=== PATIENT | female | born 1980 | race African-American/Black ===

== ENCOUNTER → 2020-01-30 07:59 | Outpatient (CLI) | payer OTHER, SELFPAY ==
--- NOTE | ~2020-01-30 | MM_ITS ---
EXAMINATION: MM diagnostic vince RT w reagan HISTORY: Six-month follow-up of likely benign right breast mammographic asymmetry TECHNIQUE: ML, MLO and cc 3-D tomosynthesis images of the right breast were performed and synthetic 2 -D images were generated. CAD analysis was submitted and interpreted. COMPARISON: 03/07/2019 diagnostic right digital mammogram and complete right breast ultrasound 02/18/2019 bilateral digital screening mammogram BREAST PARENCHYMAL COMPOSITION: There are scattered areas of fibroglandular density. FINDINGS: No suspicious mass or architectural distortion, malignant calcification, skin thickening or retraction or significant new or developing density is detected. IMPRESSION: 1. No mammographic evidence of malignancy 2. Routine mammographic screening is recommended BI-RADS Category 1: Negative Reviewed, dictated and finalized at location A.
== END ==
PROVIDERS: PCP Internal Medicine; Visit Provider Obstetrics & Gynecology
DX: R92.8 Other abnormal and inconclusive findings on diagnostic imaging of breast (principal)
CPT/HCPCS: 77061; 77065; G0279

== ENCOUNTER 2024-08-11 14:59 | Outpatient (CLI) | payer OTHER, SELFPAY ==
--- NOTE | ~2024-08-11 | MM_ITS ---
EXAMINATION: MM screening vince BI w reagan HISTORY: Screening TECHNIQUE: Craniocaudal and mediolateral oblique 3-D tomosynthesis images were obtained and synthetic 2-D images were generated. CAD analysis was submitted and interpreted. COMPARISON: Comparison to multiple prior studies sequentially, with oldest reviewed study dated 02/18/2019. BREAST PARENCHYMAL COMPOSITION: Not dense: There are scattered areas of fibroglandular density. FINDINGS: There is a focal asymmetry in the lower inner quadrant of the right breast, middle third. T he left breast is stable without evidence of malignancy. IMPRESSION: 1. New focal asymmetry lower inner quadrant, best seen on CC view. 2. Additional mammographic views and possible breast ultrasound are recommended. BI-RADS Category 0: Incomplete: Needs additional imaging evaluation. Reviewed, dictated and finalized at location A. IMPRESSION: 1. New focal asymmetry lower inner quadrant, best seen on CC view. 2. Additional mammographic views and possible breast ultrasound are recommended . BI-RADS Category 0: Incomplete: Needs additional imaging evaluation.
--- OUTSIDE RECORDS SUMMARY | 2024-08-11 15:31 | XMS_ITS | Referral Summary ---
Author Organization [facility] Address [address] [place] [address] Care Team Providers Care Resizer Operator Name Role Phone Lulu Rodgers MD Unavailable [phone] Imtiaz Tovar MD Primary Care Provider [phone] Encounters Date Type Department Care Team Description 08/03/2024 8:15 AM CDT Procedure visit [facility] [address] [place] [address] [place] [phone] Giana Calloway MD Keloid scar (Primary Dx) 07/20/2024 Telephone [facility] [address] [place] [address] [place] [phone] Con Graham 07/19/2024 Telephone [facility] [address] [place] [address] [address] [place] [phone] Con Graham from Last 3 Months Allergies Active Allergy Reactions Criticality Noted Date Comments Cetirizine Rash High 06/27/2014 Medications naproxen (Aleve) 220 mg tabletIndicatio ns:Pain,crampin g Take 220 mg by mouth as needed Active multivitamin tablet,chewable Indications:Vit breaux Deficiency Prevention Take 1 tablet by mouth every morning Active ferrous sulfate (IRON ORAL)Indication s:anemia Take 45 mg by mouth every morning Active ferrous sulfate (IRON ORAL)Indication s:anemia Take 18 mg by mouth every morning [facility] liquid iron Active loratadine (CLARITIN) 10 mg tablet Take 10 mg by mouth as needed for allergies Active acetaminophen 500 mg capsuleIndicati ons:Pain Take 2 capsules (1,000 mg total) by mouth every 6 (six) hours 60 tablet 0 Active docusate sodium (COLACE) 100 mg capsuleIndicati ons:constipatio n,Stool Softener Take 1 capsule (100 mg total) by mouth 2 (two) times a day as needed for constipation 60 capsule 3 0 Active gabapentin (NEURONTIN) 300 mg capsuleIndicati ons:Pain Take 1 capsule (300 mg total) by mouth 2 (two) times a day 60 capsule 0 Active polyethylene glycol (MIRALAX) 17 gram packetIndicatio ns:constipation Take 1 packet (17 g total) by mouth daily 30 packet 0 Active oxyCODONE (ROXICODONE) 5 mg immediate release tabletIndicatio ns:Pain Take 1 tablet (5 mg total) by mouth every 4 (four) hours as needed for pain 20 tablet 0 Active Active Problems Problem Noted Date Diagnosed Date Iron deficiency anemia 05/17/2019 Overview (05/17/2019): 2/2 menorrhagia, developed metromenorrhagia on OCP in past, Hgb down to 4 g which prompted D&C in 2008; told fibroids present; been on PO iron only since. 06/27/14 - serum iron 29, TIBC 361, ferritin 21, iron % saturation 8. 06/30/14 - WBC 4.1, Hb 9.1 g, Hct 30, MCV 71.5, PLT 326. 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 Follows with technical sales support specialist, Dr. Douglas, with plans for hysterectomy, delayed due to COVID-19 pandemic -Hgb 5.5 on arrival, symptomatic with fatigue, SOB -After 3u PRBC, hgb up to 7.8 and patient feels back to baseline -Discharge today. Instructed on iron rich diet -Needs hysterectomy, f/u with technical sales support specialist Assessment & Plan (08/28/2019 9:01 PM CDT): Long history of menorrhagia requiring transfusions in setting of known uterine fibroids. Follows with technical sales support specialist, Dr. Douglas, with plans for hysterectomy. 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 Social History Tobacco Use Types Packs/Day Years Used Date Smoking Tobacco: Never Smokeless Tobacco: Never Alcohol Use Standard Drinks/Week Comments Never 0 (1 standard drink = 0.6 oz pur e alcohol) AUDIT-C Answer Date Recorded Frequency of Alcohol Consumption Never 05/17/2019 Average Number of Drinks Not on file 020 Frequency of Binge Drinking Not on file 07/2019 Comments No Sex and Gender Information Value Date Recorded Sex Assigned at Not on file 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 Gender Identity Not on file Sexual Orientation Straight 09/16/2019 10 :34 AM CDT Last Filed Vital Signs Vital Sign Reading Time Taken Comments Blood Pressure 116/61 08/08/2020 12:29 PM CDT Pulse 70 08/08/2020 12:29 PM CDT Temperature 36.6 C (97.9 F) 08/08/2020 12:29 PM CDT Respiratory Rate 22 11/22/2019 1:36 PM CDT Oxygen Saturation 99% 08/08/2020 12:29 PM CDT Inhaled Oxygen Concentration - - Weight 95.3 kg (210 lb) 08/08/2020 12:29 PM CDT Height 175.3 cm (5' 9 ) 08/08/2020 12:29 PM CDT Body Mass Index 31.01 08/08/2020 12:29 PM CDT Plan of Treatment Not on file Insurance [facility] CHOICE PLUS [facility] HMO/PPO Address: [facility] [address] [place], [place] [id number] Advance Directives For more information, please contact: [phone] * Full Code (Latest Code Status on File) Date Activated Date Inactivated Comments 11/04/2019 11:54 AM 11/06/2019 6:40 PM * Full Code Date Activated Date Inactivated Comments 08/28/2019 8:40 PM 08/29/2019 2:37 PM Care Teams Resizer Operator Relationship Specialty Start Date End Date Imtiaz Tovar MD [address] [facility] [address] [place] [address] PCP - General 08/10/20 Lulu Rodgers MD [address] [address] Referring Physician Obstetrics and Gynecology 05/06/19
--- OUTSIDE RECORDS SUMMARY | 2024-08-11 15:31 | XMS_ITS | Clinical Summary ---
Author Organization [facility] Address [address] [place] [address] Care Team Providers Care Utilization Specialist Name Role Phone Unavailable Primary Care Provider Unavailabl e Source Comments [facility],non-owned Affiliates and Associated Physician Practices is amultiple site organization consisting of ambulatory clinics and hospital sitesin [place], [place], [place] and [place]. This disclosure is being madepursuant to the Care Everywhere program and may not contain all information available regarding this patient. Last updated 18.[facility] Social History Tobacco Use Types Packs/Day Years Used Date Smoking Tobacco: Never Assessed Comments Unknown Sex and Gender Information Value Date Recorded Sex Assigned at Not on file Legal Sex Female 8:49 AM GERMAN TUTOR Gender Identity Not on file Sexual Orientation Not on file Plan of Treatment Health Maintenance Due Date Last Done Comments LIPID TESTING 1980 MAMMOGRAM 1980 PAP SMEAR 1980 HIV SCREENING 01/07/1995 HEPATITIS C SCREENING 01/03/1998 DTAP/TDAP/TD VACCINES (1 - Tdap) 01/07/1999 HEPATITIS B VACCINE (1 of 3 - 19+ 3-dose series) 01/07/1999 COVID-19 VACCINE ( - 2023-2 5 season) 2023 DEPRESSION SCREENING 04/13/2024 INFLUENZA VACCINE (Season Ended) 2024 ZOSTER VACCINE (1 of 2) 01/07/2030 HIB VACCINE Aged Out No longer eligi ble based on patient's age to complete this topic HPV VACCINE Aged Out No longer eligi ble based on patient's age to complete this topic MENINGOCOCCAL (Group B) VACC INE SHARED DECISION-MAKING Aged Out No longer eligibl e based on patient's age to complete this topic MENINGOCOCCAL GROUPS A/C/Y/W VACCINE Aged Out No longer eligible b ased on patient's age to complete this topic PNEUMOCOCCAL VACCINE Aged Out No long er eligible based on patient's age to complete this topic Insurance [facility]
--- OUTSIDE RECORDS SUMMARY | 2024-08-11 15:31 | XMS_ITS | Clinical Summary ---
Author Organization [facility] Address [address] [place] [address] Phone Care Team Providers Care Recreation Establishment Manager Name Role Phone Unavailable Primary Care Provider Unavailabl e Allergies Active Allergy Reactions Criticality Noted Date Comments Cetirizine Rash High 06/27/2014 Medications ascorbic acid (VITAMIN C) 500 mg tablet Take 500 mg by mouth daily. Active polysaccharide iron complex (POLYSACCHARIDE IRON) 150 mg iron capsule Take 1 Capsule (150 mg) by mouth daily. 90 Capsule 3 10/17/2015 Active ibuprofen (MOTRIN) 600 mg tablet TAKE 1 TABLET BY MOUTH EVERY 6 HOURS NEEDED FOR PAIN 60 Tablet 09/23/2016 Active Active Problems Problem Noted Date Diagnosed Date Iron deficiency anemia Overview (07/12/2014): 2/2 menorrhagia, developed metromenorrhagia on OCP in past, Hgb down to 4 g which prompted D&C in 2008; told fibroids present; been on PO iron only since. 06/27/14 - serum iron 29, TIBC 361, ferritin 21, iron % saturation 8. 06/30/14 - WBC 4.1, Hb 9.1 g, Hct 30, MCV 71.5, PLT 326. Menorrhagia Immunizations Immunization Administration Dates Next Due (ADACEL/BOOSTRIX)(10 YR UP) TDAP VACCINE, 0.5ML, IM 01/11/2014 Family History Medical History Relation Name Comments Leukemia Father Colon Cancer Maternal Uncle Lymphoma Mother gastric lymphom a Breast Cancer Neg Hx Ovarian Cancer Neg Hx Relation Name Status Comments Father Maternal Uncle Mother Social History Tobacco Use Types Packs/Day Years Used Date Smoking Tobacco: Never Smokeless Tobacco: Never Alcohol Use Standard Drinks/Week Comments No 0 (1 standard drink = 0.6 oz pur e alcohol) Comments No Sex and Gender Information Value Date Recorded Sex Assigned at Not on file 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 Gender Identity Not on file Sexual Orientation Not on file Last Filed Vital Signs Vital Sign Reading Time Taken Comments Blood Pressure 110/70 09/03/2015 9:55 AM CDT Pulse 75 08/16/2015 8:28 AM CDT Temperature 36.9 C (98.5 F) 08/16/2015 8:28 AM CDT Respiratory Rate - - Oxygen Saturation 98% 08/16/2015 8:28 AM CDT Inhaled Oxygen Concentration - - Weight 93.4 kg (206 lb) 09/03/2015 9:55 AM CDT Height 177.8 cm (5' 10 ) 09/03/2015 9:55 AM CDT Body Mass Index 29.56 09/03/2015 9:55 AM CDT Plan of Treatment Health Maintenance Due Date Last Done Comments HEPATITIS B VACCINES (1 of 3 - 19+ 3-dose series) 01/07/1999 PAP SMEAR 09/02/2018 09/03/2015, 03/13/2014 (Previously completed) BREAST CANCER SCREENING 2020 CERVICAL CANCER SCREENING 09/02/2020 HPV/Cotest (21-29) 09/02/2020 09/03/2015 HPV/Cotest (30-65) 09/02/2020 09/03/2015 INFLUENZA VACCINE (#1) 2023 DTAP/TDAP/TD VACCINES (2 - Td or Tdap) 01/12/2024 01/11/2014 HPV VACCINES Aged Out No longer eligi ble based on patient's age to complete this topic Procedures Procedure Name Priority Date/Time Associated Diagnosis Comments CERV/VAG CYTO SCREEN PAP RLFX HPV Routine 09/03/2015 10:28 AM CDT from Last 3 Months or Most Recently Relevant to Health Maintenance Results * CERV/VAG CYTOPATH, THIN PREP IMAGR RFLX HPV (CP) (09/03/2015 10:28 AM CDT) [facility] INFORMATION [facility] Comment:Information not prov ided LAST MENSTRUAL PERIOD [employer] DIAGNOSTICS [facility] Comment:[id number] PREV PAP: [facility] Comment:INFORMATION NOT PROV IDED PREV BX: [facility] DIAGNOSTICS [facility] Comment:INFORMATION NOT PROV IDED SOURCE [facility] DIAGNOSTICS [facility] Comment:Endocervix ADEQUACY: [facility] DIAGNOSTICS [facility] Comment: Satisfactory for evaluation. Endocervical/transformation zone component present. INTERPRETATION [facility] Comment:Negative for intraep ithelial lesion or malignancy. COMMENT [facility] [employer] Comment: This Pap test has been evaluated with computer assisted technology. DCS ENGINEER: KULWINDER [employer] [facility] Comment: KMY, CT(ASCP) CT screening location: [place] [address] [place] [address] Test Performed at: [email or web address] [address] AMRIT MCKEON MD 09/03/2015 10:2 8 AM CDT Debbie Crabtree DO PATHOLOGY/CYTOLOGY ORDERABLES nal Result [facility] [address] [place] [address] from Last 3 Months or Most Recently Relevant to Health Maintenance Insurance [address] [place] [address] IMAGINE 360
--- OUTSIDE RECORDS SUMMARY | 2024-08-11 15:31 | XMS_ITS | Clinical Summary ---
Author Organization 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 Follows with game master, Dr. Douglas, with plans for hysterectomy, delayed due to COVID-19 pandemic -Hgb 5.5 on arrival, symptomatic with fatigue, SOB -After 3u PRBC, hgb up to 7.8 and patient feels back to baseline -Discharge today. Instructed on iron rich diet -Needs hysterectomy, f/u with game master Assessment & Plan (08/28/2019 9:01 PM CDT): Long history of menorrhagia requiring transfusions in setting of known uterine fibroids. Follows with game master, Dr. Douglas, with plans for hysterectomy. 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 Encounters Date Type Department Care Team Description 08/03/2024 8:15 AM CDT Procedure visit [facility] [address] [place] [address] Outpatient Health [address] [place] [phone] Giana Calloway MD Keloid scar (Primary Dx) 07/20/2024 Telephone [facility] [address] [place] [address] Outpatient Health [address] [place] [phone] Con Graham 07/19/2024 Telephone [facility] [address] [place] [address] Outpatient Health [address] [place] [phone] Con Graham from Last 3 Months Surgical History Surgery Date Site/Laterality Comments DILATION AND CURETTAGE OF UTERUS 04/13/2008 - 04/12/2009 Medical History Medical History Date Comments Anemia Menorrhagia Pelvic pain Uterine leiomyoma Family History Medical History Relation Name Comments Nephrolithiasis Brother Leukemia Father Heart disease Maternal Grandfather Diabetes Maternal Grandmother Gastric Lymphoma Mother Diabetes Mother's Sister 1 Diabetes Mother's Sister 2 Colon cancer Other Fibroids Sister Anesthesia problems Neg Hx Relation Name Status Comments Brother Alive Father (Age 51) Maternal Grandfather (Age 70s) Maternal Grandmother (Age 60s) Mother (Age 56) Mother's Sister 1 Alive Mother's Sister 2 Alive Other Sister Alive Social History Tobacco Use Types Packs/Day Years [...] on file 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 Gender Identity Not on file Sexual Orientation Straight 09/16/2019 10 :34 AM CDT Obstetrics History Para Term AB IAB SAB Ectopic Multiple Livin g Live Births 0 0 0 0 0 0 0 0 0 0 0 Last Filed Vital Signs Vital Sign Reading [...] 08/08/2020 12:29 PM CDT Plan of Treatment Health Maintenance Due Date Last Done Comments Breast Cancer Screening-Mammogram 1980 Cervical Cancer Screening 1980 Depression Screening 1980 Hepatitis C Screening 1980 Varicella Vaccines (1 of 2 - 13+ 2-dose series) 01/07/1993 Hepatitis B Screening 01/07/1998 Regular Well Visit/Exam 18-64 01/07/1998 DTaP/Tdap/Td Vaccine (2 - Td or Tdap) 01/12/2024 01/11/2014 Influenza Vaccine (Season Ended) 2024 03/15/20 19 HPV Vaccines Aged Out No longer eligi ble based on patient's age to complete this topic Pneumococcal vaccine <65 Aged Out No longer eligible based on patient's age to complete this topic Insurance [facility] CHOICE PLUS Advance Directives For more information, please contact: [phone] * Full Code (Latest Code Status on File) Date Activated Date Inactivated Comments 11/04/2019 11:54 AM 11/06/2019 6:40 PM * Full Code Date Activated Date Inactivated Comments 08/28/2019 8:40 PM 08/29/2019 2:37 PM Care Teams Trailer Chief Relationship Specialty Start Date End Date Imtiaz Tovar MD [address] [facility] [address] [place] [address] PCP - General 08/10/20 Lulu Rodgers MD [address] [facility] [address] [place] [address] Referring Physician Obstetrics and Gynecology 05/06/19
--- OUTSIDE RECORDS SUMMARY | 2024-08-11 15:31 | XMS_ITS | Continuity of Care Document ---
Author Organization [facility] Address [address] [place] [address] Phone Care Team Providers Care Surgeon'S Assistant Name Role Phone Niko Koroma MD Unavailable Unavailable Procedures Procedure Date Fitting Fee, Monofocal Glasses 11 Comprehensive Examination, SUPERINTENDENT CIRCUS 0 Refraction Fitting Fee, Monofocal Glasses 10 Advance Directives Directive Yes / No Effective Date File Name No Information Encounters Encounter Description Practice Location Reason(s) For Visit Diagnoses Date Provider Providers Copied on Encounter [facility], [address], [place], [place], [id number], tel:[phone] [facility] [place] No Information 1 [place] Niko. [address], [place], [place], [id number] , [place]. [phone] [facility], [address] [place], [place] [address], [place], [id number], tel:[phone] [facility] [place] No Information 0 [place] Niko. [address], [place], [place], [id number] , [place]. [phone] Family History Family Member Type Diagnosis Age At Onset No Information Payers Payer name Insurance type Covered alliance party ID Authoriza tion(s) No Information Social History Type Description Quantity Date Captured Comments Sex Female Smoking Status No Information Chief Complaint And Reason For Visit No Information Reason For Referral Reason For Referral No Information History Of Present Illness Encounter Date Complaint History Of Prese nt Illness No Information Functional Status Date Functional Assessmen t No Information Instructions Date Instruction Additional Infor mation No Information Assessments Type Assessment Date No Information Patient Care Teams Name Effective Dates (start - stop) Status Members No Information
--- OUTSIDE RECORDS SUMMARY | 2024-08-11 15:31 | XMS_ITS | Clinical Summary ---
Author Organization [facility] Care Team Providers Care Campaign Specialist Name Role Phone Unavailable Primary Care Provider Unavailabl e Social History Tobacco Use Types Packs/Day Years Used Date Smoking Tobacco: Never Assessed Comments Unknown Sex and Gender Information Value Date Recorded Sex Assigned at Not on file Legal Sex Female 11:57 AM CDT Gender Identity Not on file Sexual Orientation Not on file Plan of Treatment Health Maintenance Due Date Last Done Comments Hepatitis C Virus (HCV) Screening 1980 Hepatitis B Immunization (1 of 3 - 19+ 3-dose series) 01/07/1999 Pap Smear 01/07/2001 Cervical Cancer Screening (CCS) 01/07/2010 HPV/Cotest 01/07/2010 Discussion re Starting/Frequency of Mammograms 2020 Influenza Immunization (#1) 12/13/202301/12, 03/15/2019 SARS-COV-2 Immunization (2023- season) 2023 Respiratory Syncytial Virus (RSV) Immunization (Adult) (1 - 1-dose 75+ series) 01/07/2055 DTaP/Tdap/Td Immunization Discontinued 02/07/2020 TdaP Immunization Completed 02/07/2020 Meningococcal Immunization (ACWY) Aged Out No longer eligible based on patient's age to complete this topic Pneumococcal Immunization Combined Aged Out No longer eligible based on patient's age to complete this topic Rotavirus Immunization Aged Out No lo nger eligible based on patient's age to complete this topic
== END 2024-08-11 15:00 | disposition home or self-care (01) ==
LOC: CHSIMG 15:00
PROVIDERS: PCP Internal Medicine; Visit Provider Nurse Practitioner Obstetrics & Gynecology
DX: Z12.31 Encounter for screening mammogram for malignant neoplasm of breast (principal); R91.8 Other nonspecific abnormal finding of lung field
CPT/HCPCS: 77063; 77067

== ENCOUNTER 2024-08-26 09:02 | Outpatient (CLI) | payer OTHER, SELFPAY ==
--- NOTE | ~2024-08-26 | MMUS_ITS ---
EXAMINATION: MM diagnostic vince RT w reagan, US breast RT limited HISTORY: Follow-up right breast asymmetry TECHNIQUE: Additional 3-D tomosynthesis images of the right breast were performed and synthetic 2-D i mages were generated. CAD analysis was submitted and interpreted. High resolution right breast ultras ound was performed. COMPARISON: 08/11/2024 BREAST PARENCHYMAL COMPOSITION: Not dense: There are scattered areas of fibroglandular density. FINDINGS: MAMMOGRAPHIC FINDINGS: There is focal asymmetry with possible architectural distortion in the upper inner quadrant of the ri ght breast, anterior-middle depth. ULTRASOUND: Limited right breast ultrasound: There is mildly prominent duct at L3-4:00 position. No discrete mass es or architectural distortion are identified. IMPRESSION: 1. Focal asymmetry with possible architectural distortion upper inner quadrant of the right breast, a nterior-middle depth. No sonographic correlate. 2. Recommend further evaluation with MRI of the breast with and without contrast. BI-RADS Category 0: Incomplete: Needs additional imaging evaluation. Reviewed, dictated and finalized at location A. IMPRESSION: 1. Focal asymmetry with possible architectural distortion upper inner quadrant of the right breast, anterior-middle depth. No sonographic correlate. 2. Recommend further evaluation with MRI of the breast with and without contras t. BI-RADS Category 0: Incomplete: Needs additional imaging evaluation.
--- OUTSIDE RECORDS SUMMARY | 2024-08-26 09:15 | XMS_ITS | Clinical Summary ---
Author Organization [facility] Address [address] [place] [address] Phone Care Team Providers Care Sustainability Purchasing Agent Name Role Phone Unavailable Primary Care Provider [...] on file Legal Sex Female 4:02 PM CHECK EXAMINER Gender Identity Not on file Sexual Orientation [...] RFLX HPV (CP) (09/03/2015 10:28 AM CDT) [facility] INFORMATION [employer] [facility] Comment:Information not prov ided LAST MENSTRUAL PERIOD [employer] DIAGNOSTICS [facility] Comment:[id number] PREV PAP: [employer] [facility] Comment:INFORMATION NOT PROV IDED PREV BX: [employer] [facility] Comment:INFORMATION NOT PROV IDED SOURCE [facility] DIAGNOSTICS [facility] Comment:Endocervix ADEQUACY: [facility] DIAGNOSTICS [facility] Comment: Satisfactory for evaluation. Endocervical/transformation zone component present. INTERPRETATION [facility] Comment:Negative for intraep ithelial lesion or malignancy. COMMENT [facility] [employer] [facility] Comment: This Pap test has been evaluated with computer assisted technology. SPECIAL POLICE: KULWINDER [employer] [facility] Comment: KMY, CT(ASCP) CT screening location: [place] [address] [place] [address] Test Performed at: [facility] [address] AMRIT MCKEON MD 09/03/2015 10:2 8 AM CDT Debbie Crabtree DO PATHOLOGY/CYTOLOGY ORDERABLES nal Result [facility] [address] [place] [address] from Last 3 Months or Most Recently Relevant to Health Maintenance Insurance [address] [place] [address] IMAGINE 360
--- OUTSIDE RECORDS SUMMARY | 2024-08-26 09:15 | XMS_ITS | Referral Summary ---
Author Organization [facility] Address [address] [place] [address] Care Team Providers Care Local Operator Name Role Phone Lulu Rodgers MD Unavailable [phone] Imtiaz Tovar MD Primary Care Provider [phone] Encounters Date Type Department Care Team Description 08/03/2024 8:15 AM CDT Procedure visit [facility] Dermatology [address] [place] [address] [place] [phone] Giana Calloway MD Keloid scar (Primary Dx) 07/20/[address] [facility] Dermatology [address] [place] [address] [place] [phone] Con rGaham 07/19/[address] 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 Follows with audio visual equipment rental clerk, Dr. Douglas, with plans for hysterectomy, delayed due to COVID-19 pandemic -Hgb 5.5 on arrival, symptomatic with fatigue, SOB -After 3u PRBC, hgb up to 7.8 and patient feels back to baseline -Discharge today. Instructed on iron rich diet -Needs hysterectomy, f/u with audio visual equipment rental clerk Assessment & Plan (08/28/2019 9:01 PM CDT): Long history of menorrhagia requiring transfusions in setting of known uterine fibroids. Follows with audio visual equipment rental clerk, Dr. Douglas, with plans for hysterectomy. 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 Gender Identity Not on file Sexual Orientation [...] Plan of Treatment Not on file Insurance [facility] CHOICE PLUS [facility] HMO/PPO Address: [facility] [id number] [place], [place] [id number] Advance Directives For more information, please contact: [phone] * Full Code (Latest Code Status on File) Date Activated Date Inactivated Comments 11/04/2019 11:54 AM 11/06/2019 6:40 PM * Full Code Date Activated Date Inactivated Comments 08/28/2019 8:40 PM 08/29/2019 2:37 PM Care Teams Local Operator Relationship Specialty Start Date End Date Imtiaz Tovar MD [address] [facility] [address] [place] [address] PCP - General 08/10/20 Lulu Rodgers MD [address] [address] Referring Physician Obstetrics and Gynecology 05/06/19
--- OUTSIDE RECORDS SUMMARY | 2024-08-26 09:15 | XMS_ITS | Clinical Summary ---
Author Organization [facility] Address [address] [place] [address] Care Team Providers Care Referral Nurse Name Role Phone Unavailable Primary Care Provider Unavailabl e Source Comments [facility],non-owned Affiliates and Associated Physician Practices is amultiple site organization consisting of ambulatory clinics and hospital sitesin [place], [place], [place] and [place]. This disclosure is being madepursuant to the Care Everywhere program and may not contain all information available regarding this patient. 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
--- OUTSIDE RECORDS SUMMARY | 2024-08-26 09:15 | XMS_ITS | Clinical Summary ---
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 Follows with plastic maker, Dr. Douglas, with plans for hysterectomy, delayed due to COVID-19 pandemic -Hgb 5.5 on arrival, symptomatic with fatigue, SOB -After 3u PRBC, hgb up to 7.8 and patient feels back to baseline -Discharge today. Instructed on iron rich diet -Needs hysterectomy, f/u with plastic maker Assessment & Plan (08/28/2019 9:01 PM CDT): Long history of menorrhagia requiring transfusions in setting of known uterine fibroids. Follows with plastic maker, Dr. Douglas, with plans for hysterectomy. 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 Encounters Date Type Department Care Team Description 08/03/2024 8:15 AM CDT Procedure visit [facility] Dermatology [address] [place] [address] Outpatient Health [address] [place] [phone] Giana Calloway MD Keloid scar (Primary Dx) 07/20/2024 Telephone [facility] Dermatology [address] [place] [address] Outpatient Health [address] [place] [phone] Con Graham 07/19/2024 Telephone [facility] Dermatology [address] [place] [address] Outpatient Health [address] [place] [phone] Con Graham from Last 3 Months Surgical [...] on file 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 Gender Identity Not on file Sexual Orientation [...] patient's age to complete this topic Insurance [facility] CHOICE PLUS Advance Directives For more information, please contact: [phone] * Full Code (Latest Code Status on File) Date Activated Date Inactivated Comments 11/04/2019 11:54 AM 11/06/2019 6:40 PM * Full Code Date Activated Date Inactivated Comments 08/28/2019 8:40 PM 08/29/2019 2:37 PM Care Teams Proctologist Relationship Specialty Start Date End Date Imtiaz Tovar MD [address] [facility] [address] [place] [address] PCP - General 08/10/20 Lulu Rodgers MD [address] [facility] [address] [place] [address] Referring Physician Obstetrics and Gynecology 05/06/19
--- OUTSIDE RECORDS SUMMARY | 2024-08-26 09:15 | XMS_ITS | Clinical Summary ---
Author Organization [facility] Care Team Providers Care Technical Developer Name Role Phone Unavailable Primary Care Provider [...]
== END 2024-08-26 09:03 | disposition home or self-care (01) ==
PROVIDERS: PCP Internal Medicine; Visit Provider Nurse Practitioner Obstetrics & Gynecology
DX: R92.8 Other abnormal and inconclusive findings on diagnostic imaging of breast (principal)
CPT/HCPCS: 76642; 77061; 77065; G0279

== ENCOUNTER 2024-09-20 08:04 | Outpatient (CLI) | payer OTHER, SELFPAY ==
--- NOTE | ~2024-09-20 | MR_ITS ---
MR breast BI wo/w con 09/20/2024 12:55 CDT INDICATION: Follow-up right breast asymmetry TECHNIQUE: MRI of the breasts perform using standard protocol pre-and post IV contrast with the follo wing sequences: Axial T2 STIR, axial T1, axial vibrant T1 with fat suppression precontrast and multip hasic postcontrast. 20 cc MultiHance administered intravenously. COMPARISON: Comparison to multiple prior studies sequentially, with oldest reviewed study dated 02/12. FINDINGS: Not dense: There are scattered areas of fibroglandular content. Right breast: There are no abnormalities on the precontrast sequences. There is minimal background pa renchymal enhancement. In the upper outer quadrant of the right breast there is a 5 mm mass, anterior third of the breast. Mass measures 5 x 5 x 4 mm without oval configuration, heterogeneous rapid wash out enhancement. No evidence of signal abnormalities in the axillary or internal mammary node distrib utions. LEFT BREAST: No signal abnormalities on precontrast sequences. There is minimal background parenchym al enhancement. There is a 4 mm focus of enhancement in the subareolar location of the left breast wi th rapid washout kinetics. No evidence of signal abnormalities in the axillary or internal mammary no de distributions.] IMPRESSION: 1: Right breast: Mass upper outer quadrant of the right breast, anterior third measuring 5 mm with r apid washout. 2: Left breast: 4 mm focus of rapid washout enhancement subareolar location of the left breast.. Follow-up targeted bilateral breast ultrasound recommended for the areas of MRI concern. BI-RADS CATEGORY 0 - INCOMPLETE STUDY, NEED ADDITIONAL IMAGING EVALUATION. Reviewed, dictated and finalized at location B. IMPRESSION: 1: Right breast: Mass upper outer quadrant of the right breast, anterior third measuring 5 mm with rapid washout. 2: Left breast: 4 mm focus of rapid washout enhancement subareolar location of the left breast.. Follow-up targeted bilateral breast ultrasound recommended for the areas of MRI concern. BI-RADS CATEGORY 0 - INCOMPLETE STUDY, NEED ADDITIONAL IMAGING EVALUATION.
--- OUTSIDE RECORDS SUMMARY | 2024-09-20 08:09 | XMS_ITS | Clinical Summary ---
Author Organization [facility] Address [address] [facility] [place] [address] Care Team Providers Care Youth Counselor Name Role Phone Unavailable Primary Care Provider Unavailabl e Source Comments [facility],non-owned Affiliates and Associated Physician Practices is amultiple site organization consisting of ambulatory clinics and hospital sitesin [place], [place], [place] and [place]. This disclosure is being madepursuant to the Care Everywhere program and may not contain all information available regarding this patient. 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
--- OUTSIDE RECORDS SUMMARY | 2024-09-20 08:09 | XMS_ITS | Clinical Summary ---
Author Organization [facility] Care Team Providers Care Automatic Pilot Mechanic Name Role Phone Unavailable Primary Care Provider [...]
--- OUTSIDE RECORDS SUMMARY | 2024-09-20 08:09 | XMS_ITS | Referral Summary ---
Author Organization [facility] Address [address] [place] [address] Care Team Providers Care Cook Relief Name Role Phone Lulu Rodgers MD Unavailable [phone] Imtiaz Tovar MD Primary Care Provider [phone] Encounters Date Type Department Care Team Description 09/14/2024 10:30 AM CDT Consult [facility] Advanced Medicine Radiation Oncology [address] [place] [address] Advanced [place] [address] Mo Michele III, MD PhD Keloid scar 09/14/2024 9:00 AM CDT Office Visit [facility] Dermatology [address] [place] [address] Outpatient Health [address] [place] [phone] Giana Damon MD Keloid scar (Primary Dx) 08/03/2024 8:15 AM CDT Procedure visit [facility] Dermatology [address] [place] [address] Outpatient Health [address] [place] [address] Giana Damon MD Keloid scar (Primary Dx) 07/20/2024 Telephone [facility] Dermatology [address] [place] [address] [address] [place] [phone] Con Graham 07/19/2024 Telephone [facility] Dermatology [address] [place] [address] Outpatient Health [address] [place] [phone] GrahamCon from Last 3 Months Allergies Active Allergy [...] (05/17/2019): Added automatically from request for surgery [id number] 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 Follows with web weaver, Dr. Douglas, with plans for hysterectomy, delayed due to COVID-19 pandemic -Hgb 5.5 on arrival, symptomatic with fatigue, SOB -After 3u PRBC, hgb up to 7.8 and patient feels back to baseline -Discharge today. Instructed on iron rich diet -Needs hysterectomy, f/u with web weaver Assessment & Plan (08/28/2019 9:01 PM CDT): Long history of menorrhagia requiring transfusions in setting of known uterine fibroids. Follows with web weaver, Dr. Douglas, with plans for hysterectomy. 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 Gender Identity Not on file Sexual Orientation Straight 09/16/2019 10 :34 AM CDT Last Filed Vital Signs Vital Sign Reading Time Taken Comments Blood Pressure 137/78 09/14/2024 10:32 AM CDT Pulse 78 09/14/2024 10:32 AM CDT Temperature 36.7 C (98 F) 09/14/2024 10:32 AM CDT Respiratory Rate 16 09/14/2024 10:3 2 AM CDT Oxygen Saturation 99% 09/14/2024 10: 32 AM CDT Inhaled Oxygen Concentration - - Weight 114.9 kg (253 lb 6.4 oz) 025 10:32 AM CDT Height 175.3 cm (5' 9) 09/14/2024 10:3 2 AM CDT Body Mass Index 37.42 09/14/2024 10:32 AM CDT Plan of Treatment Not on file Insurance [facility] CHOICE PLUS [facility] HMO/PPO Address: [facility] [address] [place] [address] [facility] CHOICE PLUS [facility] HMO/PPO Address: [facility] [id number] [place] [address] Advance Directives For more information, please contact: [phone] * Full Code (Latest Code Status on File) Date Activated Date Inactivated Comments 11/04/2019 11:54 AM 11/06/2019 6:40 PM * Full Code Date Activated Date Inactivated Comments 08/28/2019 8:40 PM 08/29/2019 2:37 PM Care Teams Cook Relief Relationship Specialty Start Date End Date Imtiaz Tovar MD 331 [facility] [address] [place] [address] PCP - General 08/10/20 Lulu Rodgers MD [address] [facility] 162 [facility] [address] [place] [address] Referring Physician Obstetrics and Gynecology 05/06/19
--- OUTSIDE RECORDS SUMMARY | 2024-09-20 08:09 | XMS_ITS | Clinical Summary ---
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 Follows with plating tank operator apprentice, Dr. Douglas, with plans for hysterectomy, delayed due to COVID-19 pandemic -Hgb 5.5 on arrival, symptomatic with fatigue, SOB -After 3u PRBC, hgb up to 7.8 and patient feels back to baseline -Discharge today. Instructed on iron rich diet -Needs hysterectomy, f/u with plating tank operator apprentice Assessment & Plan (08/28/2019 9:01 PM CDT): Long history of menorrhagia requiring transfusions in setting of known uterine fibroids. Follows with plating tank operator apprentice, Dr. Douglas, with plans for hysterectomy. 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 Encounters Date Type Department Care Team Description 09/14/2024 10:30 AM CDT Consult [facility] Medicine Radiation Oncology [address] [place] [address] [place] [address] Mo Michele III, MD PhD Keloid scar 09/14/2024 9:00 AM CDT Office Visit [facility] Dermatology [address] [place] [address] Outpatient Health [address] [place] [phone] Giana Damon MD Keloid scar (Primary Dx) 08/03/2024 8:15 AM CDT Procedure visit [facility] Dermatology [address] [place] [address] Outpatient Health [address] [place] [phone] Giana Damon MD Keloid scar (Primary Dx) 07/20/2024 Telephone [facility] Dermatology [address] [place] [address] Outpatient Health [address] [place] [phone] Con Graham 07/19/2024 Telephone [facility] Dermatology [address] [place] [address] Outpatient Health [address] [place] [phone] Con Graham from Last 3 Months Surgical [...] on file 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 Gender Identity Not on file Sexual Orientation [...] 09/14/2024 10:32 AM CDT Plan of Treatment Health Maintenance [...] patient's age to complete this topic Insurance [facility] CHOICE PLUS [facility] HMO/PPO Address: [address] [address] [place] [id number] [facility] CHOICE PLUS [facility] HMO/PPO Address: [address] [address] [place] [address] Advance Directives For more information, please contact: [phone] * Full Code (Latest Code Status on File) Date Activated Date Inactivated Comments 11/04/2019 11:54 AM 11/06/2019 6:40 PM * Full Code Date Activated Date Inactivated Comments 08/28/2019 8:40 PM 08/29/2019 2:37 PM Care Teams Granite Cutter Apprentice Relationship Specialty Start Date End Date Imtiaz Tovar MD [address] [facility] [address] [place] [address] PCP - General 08/10/20 Lulu Rodgers MD [address] [facility] [address] [place] [address] Referring Physician Obstetrics and Gynecology 05/06/19
--- OUTSIDE RECORDS SUMMARY | 2024-09-20 08:09 | XMS_ITS | Clinical Summary ---
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 Gender Identity Not on file Sexual Orientation [...] 9:55 AM CDT Height 177.8 cm (5' 10) 09/03/2015 9:55 AM CDT Body Mass Index [...] RFLX HPV (CP) (09/03/2015 10:28 AM CDT) [facility] INFORMATION [employer] [facility] Comment:Information not prov ided LAST MENSTRUAL PERIOD [employer] [facility] Comment:[id number] PREV PAP: [employer] [facility] Comment:INFORMATION NOT PROV IDED PREV BX: [employer] [facility] Comment:INFORMATION NOT PROV IDED SOURCE [facility] DIAGNOSTICS [facility] Comment:Endocervix ADEQUACY: [facility] DIAGNOSTICS [facility] Comment: Satisfactory for evaluation. Endocervical/transformation zone component present. INTERPRETATION [facility] Comment:Negative for intraep ithelial lesion or malignancy. COMMENT [facility] [employer] [facility] Comment: This Pap test has been evaluated with computer assisted technology. DESULFURIZER HAND: KULWINDER [employer] [facility] Comment: KMY, CT(ASCP) CT screening location: [place] [address] [place] [address] Test Performed at: [employer] [address] AMRIT MCKEON MD 09/03/2015 10:2 8 AM CDT Debbie Crabtree DO PATHOLOGY/CYTOLOGY ORDERABLES nal Result [facility] [address] [place] [address] from Last 3 Months or Most Recently Relevant to Health Maintenance Insurance [address] [place] [address] IMAGINE 360
== END 2024-09-20 08:05 | disposition home or self-care (01) ==
PROVIDERS: PCP Internal Medicine; Visit Provider Nurse Practitioner Obstetrics & Gynecology
DX: N64.89 Other specified disorders of breast (principal); R92.8 Other abnormal and inconclusive findings on diagnostic imaging of breast
CPT/HCPCS: 77049; A9577; C8908

== ENCOUNTER 2024-10-06 09:59 | Outpatient (CLI) | payer OTHER, SELFPAY ==
--- NOTE | ~2024-10-06 | US_ITS ---
EXAMINATION TYPE: US breast BI limited COMPARISON: Breast MRI dated 09/20/2024 REASON FOR STUDY: R92.8 - Other abnormal and inconclusive findings on diagn... TECHNIQUE: Targeted sonographic evaluation of the right and left breast was performed. INTERPRETATION: At the 11:00 position right breast, 6 cm from the nipple, there is a 4 mm hypoechoic taller than wide mass with posterior shadowing. This is suspicious, and presumably correlates with the MR finding. No sonographic correlate seen for the MR finding in the left breast. IMPRESSION: 4 mm suspicious mass in the right breast 11:00 position, as detailed above, which correlates with the MR finding. Ultrasound guided biopsy recommended to establish histologic diagnosis. No sonographic correlate for the left breast MR finding. Negative sonogram should not preclude additi onal workup of a suspicious MR lesion. BI-RADS CATEGORY: BI-RADS 4: Suspicious. Biopsy should be considered Reviewed, dictated and finalized at [facility]. IMPRESSION: 4 mm suspicious mass in the right breast 11:00 position, as detailed above, whi ch correlates with the MR finding. Ultrasound guided biopsy recommended to esta blish histologic diagnosis. No sonographic correlate for the left breast MR finding. Negative sonogram shou ld not preclude additional workup of a suspicious MR lesion. BI-RADS CATEGORY: BI-RADS 4: Suspicious. Biopsy should be considered
== END 2024-10-06 10:00 | disposition home or self-care (01) ==
PROVIDERS: PCP Internal Medicine; Visit Provider Nurse Practitioner Obstetrics & Gynecology
DX: R92.8 Other abnormal and inconclusive findings on diagnostic imaging of breast (principal)
CPT/HCPCS: 76642

== ENCOUNTER 2024-10-12 07:22 | Outpatient (CLI) | payer OTHER, SELFPAY ==
--- NOTE | ~2024-10-12 | MMUS_ITS ---
EXAMINATION: US breast biopsy RT w image, MM post biopsy diagnostic RT DATE: 10/12/2024 10:54 (accession [id number]), 10/12/2024 11:18 (accession [id number]) INDICATION: 44-year-old woman with an indeterminate mass in the upper outer quadrant of the right girish ast seen on mammography, ultrasound and MRI. BREAST PARENCHYMAL COMPOSITION:Not dense: There are scattered areas of fibroglandular density. TECHNIQUE: The procedure including the risks, benefits, and alternatives was discussed with the patie nt. Risks discussed included bleeding and infection. The patient understood the risks and agreed to proceed. Limited ultrasound examination of the right breast was then again performed. At the 9:00 position of the right breast approximately 3.5 cm from the nipple is an irregular focus o f decreased echogenicity surrounded by dense fibroglandular tissue, suitable for biopsy. Sonographic evaluation of the entirety of the upper outer quadrant (specifically the 11:00 position o f the right breast) was also performed, corresponding to patient's previous ultrasound examination. No additional sonographic abnormality was detected within the upper outer quadrant of the right breas t on direct sonographic interrogation. The 9:00 position of the right breast, N3.5cm corresponded to patient's previous MRI, and the decision was made to proceed. A 9 G vacuum-assisted biopsy device was placed using continuous ultrasound guidance beneath the abnor mality at the 9:00 position. The vacuum-assisted device was utilized to obtain 3 samples. The 10-gauge biopsy device was removed, leaving the [address] Through the introducer, a coil marker was placed. All devices were then removed, and a sterile dressing applied. There were no immediate complications. Post biopsy mammography was then performed in both the CC and MLO positions demonstrating a coil micr oclip in the upper outer quadrant of the right breast without a perilesional hematoma. IMPRESSION: 1. Technically successful ultrasound-guided vacuum-assisted core biopsy of an indeterminate focus wit hin the upper outer quadrant of the right breast, with post biopsy mammography, as detailed above. Pathology pending Reviewed, dictated and finalized at location A. IMPRESSION: 1. Technically successful ultrasound-guided vacuum-assisted core biopsy of an i ndeterminate focus within the upper outer quadrant of the right breast, with po st biopsy mammography, as detailed above. Pathology pending
--- OUTSIDE RECORDS SUMMARY | 2024-10-12 07:33 | XMS_ITS | Clinical Summary ---
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 Gender Identity Not on file Sexual [...] (21-29) 09/02/2020 09/03/2015 HPV/Cotest (30-65) 09/02/2020 09/03/2015 DTAP/TDAP/TD VACCINES (2 - Td or Tdap) 01/12/2024 01/11/2014 INFLUENZA VACCINE (#1) 2024 HPV VACCINES Aged Out No longer eligi ble based on patient's age to complete this topic Procedures Procedure Name Priority Date/Time Associated Diagnosis Comments CERV/VAG CYTO SCREEN PAP RLFX HPV Routine 09/03/2015 10:28 AM CDT from Last 3 Months or Most Recently Relevant to Health Maintenance Results * CERV/VAG CYTOPATH, THIN PREP IMAGR RFLX HPV (CP) (09/03/2015 10:28 AM CDT) [facility] INFORMATION [email or web address] [facility] Comment:Information not prov ided LAST MENSTRUAL PERIOD [facility] Comment:[id number] PREV PAP: [email or web address] [facility] Comment:INFORMATION NOT PROV IDED PREV BX: [facility] Comment:INFORMATION NOT PROV IDED SOURCE [facility] Comment:[employer] ADEQUACY: [facility] Comment: Satisfactory for evaluation. Endocervical/transformation zone component present. INTERPRETATION [facility] Comment:Negative for intraep ithelial lesion or malignancy. COMMENT [employer] [facility] Comment: This Pap test has been evaluated with computer assisted technology. DESIGN SUPERVISOR: KULWINDER [employer] [facility] Comment: KMY, CT(ASCP) CT screening location: [place] [address] [place] [address] Test Performed at: [email or web address] [address] AMRIT MCKEON MD 09/03/2015 10:2 8 AM CDT Debbie Crabtree DO PATHOLOGY/CYTOLOGY ORDERABLES nal Result [facility] [address] [place] [address] from Last 3 Months or Most Recently Relevant to Health Maintenance Insurance [address] [place] [address] IMAGINE 360
--- OUTSIDE RECORDS SUMMARY | 2024-10-12 07:33 | XMS_ITS | Clinical Summary ---
Author Organization [facility] Address [address] [facility] [place] [address] Care Team Providers Care Colon Therapist Name Role Phone Unavailable Primary Care Provider Unavailabl e Source Comments [facility],non-owned Affiliates and Associated Physician Practices is amultiple site organization consisting of ambulatory clinics and hospital sitesin [place], [place], [place] and [place]. This disclosure is being madepursuant to the Care Everywhere program and may not contain all information available regarding this patient. 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
--- OUTSIDE RECORDS SUMMARY | 2024-10-12 07:33 | XMS_ITS | Clinical Summary ---
Author Organization [facility] Address [address] [place] [address] Care Team Providers Care Actuarial Consultant Name Role Phone Lulu Rodgers MD Unavailable [phone] Imtiaz Tovar MD Primary Care Provider [phone] Leny FAY MD PhD, Mo Osorio Unavailable Allergies Active Allergy Reactions Criticality Noted Date [...] Take 18 mg by mouth every morning [employer] [facility] liquid iron Active loratadine (CLARITIN) 10 [...] (05/17/2019): Added automatically from request for surgery 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 Follows with computer publisher, Dr. Douglas, with plans for hysterectomy, delayed due to COVID-19 pandemic -Hgb 5.5 on arrival, symptomatic with fatigue, SOB -After 3u PRBC, hgb up to 7.8 and patient feels back to baseline -Discharge today. Instructed on iron rich diet -Needs hysterectomy, f/u with computer publisher Assessment & Plan (08/28/2019 9:01 PM CDT): Long history of menorrhagia requiring transfusions in setting of known uterine fibroids. Follows with computer publisher, Dr. Douglas, with plans for hysterectomy. 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 Encounters Date Type Department Care Team Description 10/05/2024 Telephone [facility] Radiation Oncology [address] [place] [address] Camille Arriaga RN 10/05/2024 Orders Only [facility] [address] [place] [address] Mo Michele III, MD PhD Keloid scar (Primary Dx) 09/14/2024 10:30 AM CDT Consult [facility] Radiation Oncology [address] [place] [address] Advanced [place] [address] Mo Michele III, MD PhD Keloid scar 09/14/2024 9:00 AM CDT Office Visit [facility] Dermatology [address] [place] [address] Outpatient Health [address] [place] [address] Giana Damon MD Keloid scar (Primary Dx) 08/03/2024 8:15 AM CDT Procedure visit [facility] Dermatology [address] [place] [address] Outpatient Health [address] [place] [address] Giana Damon MD Keloid scar (Primary Dx) 07/20/2024 Telephone [facility] Dermatology [address] [facility] Outpatient Health [address] [place] [address] Con Graham 07/19/2024 Telephone [facility]erm[facility] [address] 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 Gender Identity Not on file Sexual Orientation [...] Screening 01/07/1998 Regular Well Visit/Exam 18-64 01/07/1998 Pneumococcal vaccine <65 (1 of 2 - PCV) 01/07/1999 Influenza Vaccine (#1) 2024 0, 03/15/2019 DTaP/Tdap/Td Vaccine (3 - Td or Tdap) 02/06/2030 02/07/2020, 01/11/2014 HPV Vaccines Aged Out No longer eligi ble based on patient's age to complete this topic Insurance [facility] CHOICE PLUS Advance Directives For more information, please contact: [phone] * Full Code (Latest Code Status on File) Date Activated Date Inactivated Comments 11/04/2019 11:54 AM 11/06/2019 6:40 PM * Full Code Date Activated Date Inactivated Comments 08/28/2019 8:40 PM 08/29/2019 2:37 PM Care Teams Actuarial Consultant Relationship Specialty Start Date End Date Imtiaz Tovar MD [address] [facility] [address] [place] [address] PCP - General 08/10/20 Lulu Rodgers MD [address] [facility] [address] [place] [address] Referring Physician Obstetrics and Gynecology 05/06/19 Mo Michele III, MD PhD [address] [facility] [address] [place] [address] Consulting Physician Radiation Oncology 09/12/24
--- OUTSIDE RECORDS SUMMARY | 2024-10-12 07:33 | XMS_ITS | Referral Summary ---
Author Organization [facility] Address [address] [place] [address] Care Team Providers Care Fitter Welder Name Role Phone Lulu Rodgers MD Unavailable [phone] Imtiaz Tovar MD Primary Care Provider + [phone] Leny FAY MD PhD, Mo Osorio Unavailable Encounters Date Type Department Care Team Description 10/05/2024 Telephone [facility] Radiation Oncology [address] [place] [address] Camille Arriaga RN 10/05/2024 Orders Only [facility]cology [address] [place] [address] Mo Michele III, MD PhD Keloid scar (Primary Dx) 09/14/2024 10:30 AM CDT Consult [facility] Radiation Oncology [address] [facility] Advanced [facility] [place] [address] Mo Michele III, MD PhD Keloid scar 09/14/2024 9:00 AM CDT Office Visit [facility] Dermatology [address] [facility] Health [address] [place] [address] Giana Damon MD Keloid scar (Primary Dx) 08/03/2024 8:15 AM CDT Procedure visit [facility] Dermatology [address] [place] [address] Outpatient Health [address] [place] [address] Giana Damon MD Keloid scar (Primary Dx) 07/20/2024 Telephone [facility] Dermatology [address] [place] [address] Outpatient Health [address] [place] [address] Con Graham 07/19/2024 Telephone [facility] Dermatology [address] [place] [address] Outpatient Health [address] [place] [address] Con Graham from Last 3 [...] Take 18 mg by mouth every morning [employer] liquid iron Active loratadine (CLARITIN) 10 mg [...] (05/17/2019): Added automatically from request for surgery [id number] 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 Follows with sustainable communities designer, Dr. Douglas, with plans for hysterectomy, delayed due to COVID-19 pandemic -Hgb 5.5 on arrival, symptomatic with fatigue, SOB -After 3u PRBC, hgb up to 7.8 and patient feels back to baseline -Discharge today. Instructed on iron rich diet -Needs hysterectomy, f/u with sustainable communities designer Assessment & Plan (08/28/2019 9:01 PM CDT): Long history of menorrhagia requiring transfusions in setting of known uterine fibroids. Follows with sustainable communities designer, Dr. Douglas, with plans for hysterectomy. 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 Gender Identity Not on file Sexual Orientation [...] Plan of Treatment Not on file Insurance [facility] CHOICE PLUS [facility] HMO/PPO Address: [address] [place] [address] [facility] CHOICE PLUS [facility] HMO/PPO Address: [address] [place] [address] Advance Directives For more information, please contact: [phone] * Full Code (Latest Code Status on File) Date Activated Date Inactivated Comments 11/04/2019 11:54 AM 11/06/2019 6:40 PM * Full Code Date Activated Date Inactivated Comments 08/28/2019 8:40 PM 08/29/2019 2:37 PM Care Teams Fitter Welder Relationship Specialty Start Date End Date Imtiaz Tovar MD [address] [facility] [address] [place] [address] PCP - General 08/10/20 Lulu Rodgers MD [address] [facility] [address] [facility] [address] [place] [address] Referring Physician Obstetrics and Gynecology 05/06/19 Mo Michele III, MD PhD [address] [facility] [address] [place] [address] Consulting Physician Radiation Oncology 09/12/24
--- OUTSIDE RECORDS SUMMARY | 2024-10-12 07:33 | XMS_ITS | Clinical Summary ---
Author Organization [facility] Care Team Providers Care Pay Agent Name Role Phone Unavailable Primary Care [...]
--- NOTE | 2024-10-12 10:52 | S_PTH ---
PATIENT: Sarah Magallanes LOC: [facility] U#:[id number] AGE/SX: 44/F ROOM: RE10/12/[address]: Sandy King MD : 1980 BED: DIS: 10/12/2024 SPEC #: [id number] RECD: 10/12/24 13:50 STATUS: DENZEL REQ #: [id number] THAD: 10/12/24 10:[address]: Sandy King DEPT: [facility] Surgical RECD BY: [facility] ENTERED: 10/12/24 13:50 SP TYPE: Surgical OTHR DR: Imtiaz Tovar, Tissues: A - Breast Biopsy Procedures: P63 Hematoxylin and Eosin Stain Gross and Microscopic Level 4 CK 5
== END 2024-10-12 07:23 | disposition home or self-care (01) ==
PROVIDERS: PCP Internal Medicine; Visit Provider Surgery
DX: N63.11 Unspecified lump in the right breast, upper outer quadrant (principal)
CPT/HCPCS: 19083; 77065; 88305; 88342; A4648